=== PATIENT | female | born 1990 | race Asian ===

== ENCOUNTER → 2025-03-05 | Outpatient (CLI) | payer OTHER | LOC: M PLARAD 08:13 | PROVIDERS: ATTEND Nurse Practitioner Family | DX: M25.552 Pain in left hip (principal) ==

== ENCOUNTER 2025-04-04 09:15 | Emergency (ER) | payer OTHER ==
[~2025-04-04] VITALS: Ht 165.1 cm; Wt 65.9 kg
[2025-04-04 09:58] LABS: BASO # 0.0 10^3/uL (0.0-0.2); BASO % 0.3 % (0.0-1.0); EOS # 0.1 10^3/uL (0.0-0.5); EOS % 1.2 % (0.0-3.0); LYMPH # 2.1 10^3/uL (1.5-5.0); LYMPH % 19.0 % (24.0-44.0); MONO # 0.6 10^3/uL (0.0-0.8); MONO % 5.6 % (2.0-8.0); NEUTROPHILS # 8.2 10^3/uL (1.5-8.5); NEUTROPHILS % 73.5 % (36.0-66.0); PLATELET COUNT, AUTOMATED 380 10^3/uL (150-450)
[2025-04-04 10:20] LABS: ALT/SGPT 34 U/L (7.0-40); AST/SGOT 23 U/L (<34); CALCIUM LEVEL 9.7 MG/DL (8.5-10.1); CARBON DIOXIDE LEVEL 26 MMOL/L (20-31); CHLORIDE LEVEL 103 MMOL/L (98-107); CREATININE FOR GFR 0.75 MG/DL (0.55-1.30); GLOMERULAR FILTRATION RATE > 90.0 (>60); POTASSIUM SERUM 4.5 MMOL/L (3.5-5.1); SODIUM LEVEL 137 MMOL/L (136-145)
[2025-04-04] MEDS: PANTOPRAZOLE 40MG VIAL IV ONE (11:11)
[2025-04-04] MEDS: NS (Normal Saline) 0.9% 1,000 ML IV ONE (11:11)
[2025-04-04 11:20] LABS: HCG, SERUM QUALITATIVE NEGATIVE (NEGATIVE)
[2025-04-04] MEDS: KETOROLAC 30 MG/ML 1 ML VIAL IV ONE (11:33)
[2025-04-04] MEDS: ONDANSETRON 4MG 2ML VIAL IV ONE (11:33)
[2025-04-04] MEDS ORDERED: ISOVUE-370 76% 100 ML VIAL As Ordered ONE (11:36)
[2025-04-04 11:40] LABS: CK-MB VALUE MASS < 1.0 NG/ML (<3.6)
[2025-04-04 11:46] LABS: CPK CREATINE PHOSPHOKINASE 59 U/L (34-145)
[2025-04-04 12:53] LABS: KETONE, URINE AUTO RFX TRACE mg/dL (NEGATIVE); LEUKOCYTE ESTERASE UR AUTO RFX NEGATIVE (NEGATIVE); NITRITE, URINE AUTO RFX NEGATIVE (NEGATIVE); RBC, URINE AUTO RFX 2 /HPF (0-3); SQUAM EPITHELIAL CELL UR AURFX 0 /HPF (0-6); WBC, URINE AUTO RFX 0 /HPF (0-3)
[2025-04-04 14:54] VITALS: BP 114/72; TEMP 98; O2SAT 100
[2025-04-04] MEDS ORDERED: CARA1TAB6 PO (15:00)
[2025-04-04] MEDS ORDERED: OMEP40CA4 PO ×2 (15:00→15:07)
== END 2025-04-04 15:45 | disposition home or self-care (01) ==
LOC: M ED 09:15
DX: K29.00 Acute gastritis without bleeding (principal); R79.89 Other specified abnormal findings of blood chemistry; K64.8 Other hemorrhoids; R10.13 Epigastric pain; R11.2 Nausea with vomiting, unspecified; R00.0 Tachycardia, unspecified; F41.9 Anxiety disorder, unspecified; F32.A Depression, unspecified; F10.10 Alcohol abuse, uncomplicated
CPT/HCPCS: 71045; 74177; 76705; 80048; 80076; 81001; 82550; 82553; 83605; 83690; 84484; 84703; 85025; 87486; 87581; 87633; 87798; 93005; 96374; 96375; 99284; J1885; J2405; J2470; J2765; Q9967